=== PATIENT | female | born 1940 | race Hispanic/Latino ===

== ENCOUNTER → 2018-04-21 | Outpatient (CLI) | payer MEDICARE ==
[~2018-04-21] MED LIST: TRAM50TA4 PO
== END | disposition home or self-care (01) ==
LOC: RAH 08:43
PROVIDERS: ATTEND Family Medicine
DX: J43.9 Emphysema, unspecified (principal); R91.8 Other nonspecific abnormal finding of lung field; R91.1 Solitary pulmonary nodule; M47.894 Other spondylosis, thoracic region; K44.9 Diaphragmatic hernia without obstruction or gangrene
CPT/HCPCS: 71250

== ENCOUNTER → 2018-04-25 | Outpatient (CLI) | payer MEDICARE ==
[~2018-04-25] MED LIST changes: +REGADENOSON 0.4 MG/5 ML PF SYG IVP SCH
== END | disposition home or self-care (01) ==
LOC: SHCH 08:53
PROVIDERS: ATTEND Internal Medicine Cardiovascular Disease
DX: R07.9 Chest pain, unspecified (principal); R06.09 Other forms of dyspnea
CPT/HCPCS: 78452; 93017; 96374; A9500 ×2; J2785

== ENCOUNTER → 2018-05-01 | Outpatient (CLI) | payer MEDICARE ==
[~2018-05-01] MED LIST changes: -REGADENOSON 0.4 MG/5 ML PF SYG IVP SCH
== END | disposition home or self-care (01) ==
LOC: SHCH 09:30
PROVIDERS: ATTEND Internal Medicine Cardiovascular Disease
DX: I51.7 Cardiomegaly (principal); I20.9 Angina pectoris, unspecified; Z95.0 Presence of cardiac pacemaker
CPT/HCPCS: 93306

== ENCOUNTER 2018-12-22 10:44 | Emergency (ER) | payer MEDICARE ==
[2018-12-22] MEDS ORDERED: KETOROLAC TROMETHAMINE 30MG/ML ONE (13:50)
== END 2018-12-22 15:32 | disposition home or self-care (01) ==
LOC: EDH 10:44
DX: S13.8XXA Sprain of joints and ligaments of other parts of neck, initial encounter (principal); S33.5XXA Sprain of ligaments of lumbar spine, initial encounter; I48.91 Unspecified atrial fibrillation; Z88.5 Allergy status to narcotic agent; Z88.6 Allergy status to analgesic agent; Z91.041 Radiographic dye allergy status; V89.2XXA Person injured in unspecified motor-vehicle accident, traffic, initial encounter; Y93.89 Activity, other specified; Y92.89 Other specified places as the place of occurrence of the external cause; Y99.8 Other external cause status
CPT/HCPCS: 72125; 72128; 72131; 96372; 99284; J1885

== ENCOUNTER → 2019-03-05 | Outpatient (CLI) | payer MEDICARE | END | disposition home or self-care (01) | LOC: RAH 08:45 | PROVIDERS: ATTEND Family Medicine | DX: R10.9 Unspecified abdominal pain (principal); Z90.49 Acquired absence of other specified parts of digestive tract | CPT/HCPCS: 76700 ==

== ENCOUNTER 2019-04-20 21:38 | Emergency (ER) | payer MEDICARE ==
[2019-04-20] MEDS ORDERED: KETOROLAC TROMETHAMINE 15MG/ML ONE (22:49)
[2019-04-20] MEDS ORDERED: LIDOCAINE 5% TOPICAL PATCH TP ONE (22:49)
[2019-04-20 23:04] LABS: BASOPHILS % (AUTO) 0.4 % (0.0-5.0); EOSINOPHILS % (AUTO) 2.5 % (0.0-8.0); HEMATOCRIT 37.7 % (36-48); LYMPHOCYTES % (AUTO) 15.7 % (21.0-51.0); MEAN CORPUSCULAR HEMOGLOBIN 31.3 pg (27.0-33.0); MEAN CORPUSCULAR HGB CONC 34.5 g/dL (32.0-36.0); MEAN CORPUSCULAR VOLUME 90.6 fL (79-99); MONOCYTES % (AUTO) 8.6 % (3.0-13.0); NEUTROPHILS % (AUTO) 72.8 % (40.0-77.0); PLATELET COUNT (AUTO) 156 K/uL (130-400); RED BLOOD CELL COUNT(AUTO) 4.16 MIL/uL (4.00-5.50); RED CELL DISTRIBUTION WIDTH 13.2 % (11.0-15.5); WHITE BLOOD COUNT (AUTO) 8.1 K/uL (4.8-10.8)
[2019-04-20 23:11] LABS: CREATININE 0.6 mg/dL (0.5-1.5); POTASSIUM 3.5 mmol/L (3.5-5.1)
[2019-04-21 00:11] LABS: ERYTHROCYTE SEDIMENTATION RATE 12 MM/HR (0-30)
== END 2019-04-21 03:14 | disposition home or self-care (01) ==
LOC: EDH 21:38
DX: S16.1XXA Strain of muscle, fascia and tendon at neck level, initial encounter (principal); G89.29 Other chronic pain; M54.2 Cervicalgia; I48.91 Unspecified atrial fibrillation; Z88.5 Allergy status to narcotic agent; Z88.6 Allergy status to analgesic agent; Z91.041 Radiographic dye allergy status; X58.XXXA Exposure to other specified factors, initial encounter; Y93.89 Activity, other specified; Y92.89 Other specified places as the place of occurrence of the external cause; Y99.8 Other external cause status
CPT/HCPCS: 36415; 72125; 80048; 85025; 85651; 86140; 96374; 99285; J1885

== ENCOUNTER → 2019-06-06 | Outpatient (CLI) | payer MEDICARE | END | disposition home or self-care (01) | LOC: RAH 10:40 | PROVIDERS: ATTEND Family Medicine | DX: M25.552 Pain in left hip (principal) | CPT/HCPCS: 73501 ==

== ENCOUNTER 2019-12-20 09:26 | Emergency (ER) | payer MEDICARE ==
[2019-12-20 09:42] LABS: BASOPHILS % (AUTO) 0.7 % (0.0-5.0); EOSINOPHILS % (AUTO) 4.9 % (0.0-8.0); HEMATOCRIT 39.6 % (36-48); LYMPHOCYTES % (AUTO) 25.5 % (21.0-51.0); MEAN CORPUSCULAR HEMOGLOBIN 29.5 pg (27.0-33.0); MEAN CORPUSCULAR HGB CONC 32.8 g/dL (32.0-36.0); MONOCYTES % (AUTO) 9.1 % (3.0-13.0); NEUTROPHILS % (AUTO) 59.5 % (40.0-77.0); PLATELET COUNT (AUTO) 152 K/uL (130-400); WHITE BLOOD COUNT (AUTO) 6.2 K/uL (4.8-10.8)
[2019-12-20] MEDS ORDERED: ASPIRIN 325 MG TABLET ONE (09:43)
[2019-12-20 10:12] LABS: INR 0.97 (0.85-1.15); PARTIAL THROMBOPLASTIN TIME 27.3 SEC (26.3-35.5); PROTHROMBIN TIME 10.2 SEC (9.6-11.6)
[2019-12-20 10:19] LABS: ALBUMIN 3.2 g/dL (3.5-5.0); BILIRUBIN,TOTAL 0.4 mg/dL (0.2-1.0); POTASSIUM 3.7 mmol/L (3.5-5.1); TOTAL PROTEIN, SERUM 6.2 g/dL (6.0-8.3)
[2019-12-20 10:42] LABS: CREATININE 0.6 mg/dL (0.5-1.5)
[2019-12-20] MEDS ORDERED: DIAZEPAM 5 MG TABLET ONE (13:15)
[2019-12-20] MEDS ORDERED: KETOROLAC TROMETHAMINE 15MG/ML ONE (13:15)
[2019-12-20] MEDS ORDERED: SODIUM CHLORIDE 0.9% 1000ML 1,000 ML IV ONE (13:16)
== END 2019-12-20 15:16 | disposition home or self-care (01) ==
LOC: EDH 09:26
DX: R07.89 Other chest pain (principal); Z88.6 Allergy status to analgesic agent; Z88.5 Allergy status to narcotic agent; Z91.041 Radiographic dye allergy status; I48.91 Unspecified atrial fibrillation
CPT/HCPCS: 36415; 71045; 80053; 82550; 83880; 84484 ×2; 85025; 85610; 85730; 93005 ×2; 96374; 99285; J1885; J7030

== ENCOUNTER 2020-02-04 09:50 | Emergency (ER) | payer MEDICARE ==
[2020-02-04 10:20] LABS: BASOPHILS % (AUTO) 0.3 % (0.0-5.0); EOSINOPHILS % (AUTO) 4.3 % (0.0-8.0); HEMATOCRIT 38.6 % (36-48); LYMPHOCYTES % (AUTO) 17.9 % (21.0-51.0); MEAN CORPUSCULAR HEMOGLOBIN 30.2 pg (27.0-33.0); MEAN CORPUSCULAR HGB CONC 33.7 g/dL (32.0-36.0); MEAN CORPUSCULAR VOLUME 89.8 fL (79-99); MONOCYTES % (AUTO) 8.7 % (3.0-13.0); NEUTROPHILS % (AUTO) 68.3 % (40.0-77.0); PLATELET COUNT (AUTO) 171 K/uL (130-400); RED CELL DISTRIBUTION WIDTH 12.6 % (11.0-15.5); WHITE BLOOD COUNT (AUTO) 6.3 K/uL (4.8-10.8)
[2020-02-04 10:29] LABS: CREATININE 0.8 mg/dL (0.5-1.5); POTASSIUM 3.7 mmol/L (3.5-5.1)
[2020-02-04 10:34] LABS: ALBUMIN 3.5 g/dL (3.5-5.0); BILIRUBIN,TOTAL 0.5 mg/dL (0.2-1.0); TOTAL PROTEIN, SERUM 7.1 g/dL (6.0-8.3)
[2020-02-04 10:39] LABS: INR 0.98 (0.85-1.15); PARTIAL THROMBOPLASTIN TIME 29.8 SEC (26.3-35.5); PROTHROMBIN TIME 10.6 SEC (9.6-11.6)
[2020-02-04 10:55] LABS: B-TYPE NATRIURETIC PEPTIDE 118 pg/mL (0-100)
== END 2020-02-04 13:08 | disposition home or self-care (01) ==
LOC: EDH 09:50
DX: S09.90XA Unspecified injury of head, initial encounter (principal); R42 Dizziness and giddiness; I48.91 Unspecified atrial fibrillation; Z90.49 Acquired absence of other specified parts of digestive tract; Z98.890 Other specified postprocedural states; Z91.041 Radiographic dye allergy status; Z88.5 Allergy status to narcotic agent; Z88.6 Allergy status to analgesic agent; X58.XXXA Exposure to other specified factors, initial encounter; Y93.89 Activity, other specified; Y92.098 Other place in other non-institutional residence as the place of occurrence of the external cause; Y99.8 Other external cause status
CPT/HCPCS: 36415; 70450; 71045; 72125; 80053; 82550; 83880; 84484; 85025; 85610; 85730; 93005

== ENCOUNTER → 2020-02-06 | Outpatient (CLI) | payer MEDICARE | END | disposition home or self-care (01) | LOC: SHCH 09:45 | PROVIDERS: ATTEND Internal Medicine Cardiovascular Disease | DX: I34.0 Nonrheumatic mitral (valve) insufficiency (principal); I48.0 Paroxysmal atrial fibrillation; I51.7 Cardiomegaly; R06.09 Other forms of dyspnea | CPT/HCPCS: 93306 ==

== ENCOUNTER 2022-01-18 06:05 | Day surgery (SDC) | payer MEDICARE ==
[2022-01-14 12:37] LABS: BASOPHILS % (AUTO) 0.4 % (0.0-5.0); EOSINOPHILS % (AUTO) 1.9 % (0.0-8.0); HEMATOCRIT 43.6 % (36-48); LYMPHOCYTES % (AUTO) 25.8 % (21.0-51.0); MEAN CORPUSCULAR HEMOGLOBIN 30.8 pg (27.0-33.0); MEAN CORPUSCULAR VOLUME 93.4 fL (79-99); NEUTROPHILS % (AUTO) 63.6 % (40.0-77.0); PLATELET COUNT (AUTO) 201 K/uL (130-400); RED BLOOD CELL COUNT(AUTO) 4.67 MIL/uL (4.00-5.50); RED CELL DISTRIBUTION WIDTH 12.5 % (11.0-15.5); WHITE BLOOD COUNT (AUTO) 8.9 K/uL (4.8-10.8)
[2022-01-14 12:46] LABS: CREATININE 0.6 mg/dL (0.5-1.5); POTASSIUM 3.6 mmol/L (3.5-5.1)
[2022-01-14 12:49] LABS: INR 1.07 (0.85-1.15); PROTHROMBIN TIME 11.6 SEC (9.6-11.6)
[2022-01-14 12:51] LABS: PARTIAL THROMBOPLASTIN TIME 31.2 SEC (26.3-35.5)
[2022-01-15 08:49] VITALS: BP 176/84
[~2022-01-18] VITALS: Ht 160 cm; Wt 65.6 kg
[2022-01-18] VITALS (8 sets, daily range): BP systolic 100–147; BP diastolic 67–77
[~2022-01-18 06:05] MED LIST changes: +0.9% NACL 500ML IV.SOLN 500 ML IV SCH; +ACET-2247 PO; +CLINDAMYCIN IVPB 900MG/50ML 50 ML IV SCH; +CLON0.1T PO
[2022-01-18] MEDS ORDERED: 0.9%NACL 1000ML 1,000 ML IV ONE (06:16)
[2022-01-18] MEDS ORDERED: MEPERIDINE-PF 25 MG/ML SYG ONE ×2 (07:33→08:03)
[2022-01-18] MEDS ORDERED: CEFAZOLIN SODIUM 1 GM VIAL ONE (07:33)
[2022-01-18] MEDS ORDERED: BUPIVACAINE/PF 0.25% 30ML VIAL IJ ONE (07:33)
[2022-01-18] MEDS ORDERED: LIDOCAINE HCL 1% MDV 50ML VIAL ONE (07:33)
[2022-01-18] MEDS ORDERED: MIDAZOLAM HCL 1 MG/ML 2ML VIAL ONE ×2 (07:33→08:03)
[2022-01-18] MEDS ORDERED: CLINDAMYCIN IVPB 600MG/50ML 50 ML IV ONE (07:39)
[2022-01-18] MEDS ORDERED: TRAMADOL HCL 50 MG TABLET PO PRN (09:00)
== END 2022-01-18 12:05 | disposition home or self-care (01) ==
LOC: DAH 06:05
PROVIDERS: ATTEND Internal Medicine Cardiovascular Disease
DX: Z45.010 Encounter for checking and testing of cardiac pacemaker pulse generator [battery] (principal); I48.21 Permanent atrial fibrillation; I49.5 Sick sinus syndrome; Z88.6 Allergy status to analgesic agent; Z88.8 Allergy status to other drugs, medicaments and biological substances; Z88.3 Allergy status to other anti-infective agents; Z98.890 Other specified postprocedural states; Z88.1 Allergy status to other antibiotic agents; Z79.01 Long term (current) use of anticoagulants; Z90.49 Acquired absence of other specified parts of digestive tract; Z90.710 Acquired absence of both cervix and uterus; Z98.891 History of uterine scar from previous surgery; Z82.49 Family history of ischemic heart disease and other diseases of the circulatory system
CPT/HCPCS: 33228; 36415; 80048; 85025; 85610; 85730; 93005; A4215; A4216; A4221; A4222; A4223 ×3; A4606; A4663; C1785; J2175 ×2; J2250 ×2; J3490 ×4; J7030; 99156; 99157; J0690

== ENCOUNTER 2022-03-24 12:34 | Emergency (ER) | payer MEDICARE ==
[~2022-03-24 12:34] MED LIST changes: -0.9% NACL 500ML IV.SOLN 500 ML IV SCH; -CLINDAMYCIN IVPB 900MG/50ML 50 ML IV SCH
[2022-03-24 12:50] LABS: BASOPHILS % (AUTO) 0.6 % (0.0-5.0); EOSINOPHILS % (AUTO) 3.4 % (0.0-8.0); HEMATOCRIT 41.2 % (36-48); MEAN CORPUSCULAR HEMOGLOBIN 31.1 pg (27.0-33.0); MEAN CORPUSCULAR HGB CONC 32.8 g/dL (32.0-36.0); MEAN CORPUSCULAR VOLUME 94.9 fL (79-99); MONOCYTES % (AUTO) 9.5 % (3.0-13.0); NEUTROPHILS % (AUTO) 59.4 % (40.0-77.0); PLATELET COUNT (AUTO) 167 K/uL (130-400); RED BLOOD CELL COUNT(AUTO) 4.34 MIL/uL (4.00-5.50); RED CELL DISTRIBUTION WIDTH 12.2 % (11.0-15.5); WHITE BLOOD COUNT (AUTO) 6.7 K/uL (4.8-10.8)
[2022-03-24 12:58] LABS: CREATININE 0.7 mg/dL (0.5-1.5)
[2022-03-24] MEDS ORDERED: MAG/ALUM/SIMETH 30 ML UDCUP PO ONE (13:00)
[2022-03-24] MEDS ORDERED: FAMOTIDINE 20MG VIAL IV ONE (13:00)
[2022-03-24] MEDS ORDERED: DICYCLOMINE HCL 10 MG/5 ML ML PO ONE (13:00)
[2022-03-24] MEDS ORDERED: ONDANSETRON 4MG INJ IVP ONE (13:00)
[2022-03-24] MEDS ORDERED: LIDOCAINE HCL 2% VISCOUS 15 ML UDCUP PO ONE (13:00)
[2022-03-24 13:04] LABS: ALBUMIN 3.9 g/dL (3.5-5.0); BILIRUBIN,TOTAL 0.6 mg/dL (0.2-1.0); TOTAL PROTEIN, SERUM 7.3 g/dL (6.0-8.3)
[2022-03-24 14:18] LABS: APPEARANCE,URINE Clear (CLEAR); BILIRUBIN,URINE Negative (NEGATIVE); COLOR,URINE Yellow (YELLOW); GLUCOSE, URINE (UA) Negative (NEGATIVE); KETONES,URINE Negative (NEGATIVE); LEUKOCYTE ESTERASE ,URINE Negative (NEGATIVE); NITRATE,URINE Negative (NEGATIVE); OCCULT BLOOD,URINE Small (NEGATIVE); PH,URINE 5.5 (5.0-8.0); PROTEIN,URINE Negative (NEGATIVE); UROBILINOGEN,URINE 0.2 mg/dL (0.2-1.0)
[2022-03-24 14:29] LABS: BACTERIA,URINE Rare /HPF (None Seen); RBC,URINE 0-1 /HPF (0-1); SQUAMOUS EPITHELIAL CELL,UR Rare /HPF (0-2); WBC,URINE 0-1 /HPF (0-1)
[2022-03-24 14:35] VITALS: BP 126/74
[2022-03-24] MEDS ORDERED: ONDA4TAB10 PO (14:36)
== END 2022-03-24 14:58 | disposition home or self-care (01) ==
LOC: EDH 12:34
DX: K57.30 Diverticulosis of large intestine without perforation or abscess without bleeding (principal); R13.10 Dysphagia, unspecified; I10 Essential (primary) hypertension; I48.91 Unspecified atrial fibrillation; Z88.6 Allergy status to analgesic agent; Z88.2 Allergy status to sulfonamides; Z88.1 Allergy status to other antibiotic agents; Z88.8 Allergy status to other drugs, medicaments and biological substances; Z79.899 Other long term (current) drug therapy; Z90.89 Acquired absence of other organs; Z90.49 Acquired absence of other specified parts of digestive tract; Z98.890 Other specified postprocedural states
CPT/HCPCS: 36415; 71045; 74176; 80053; 81001; 83690; 84484; 85025; 96374; 96375; 99285; J2405; J3490

== ENCOUNTER 2023-06-26 02:38 | Observation (INO) | payer MEDICARE ==
[~2023-06-26] VITALS: Ht 149.9 cm; Wt 68.3 kg
[~2023-06-26 02:38] MED LIST changes: +ONDA4TAB10 PO
[2023-06-26 03:11] LABS: CREATININE 0.8 mg/dL (0.5-1.5); POTASSIUM 3.4 mmol/L (3.5-5.1)
[2023-06-26 03:15] LABS: ALBUMIN 3.5 g/dL (3.5-5.0); BASOPHILS # (AUTO) 0.04 K/uL (0.00-0.20); BASOPHILS % (AUTO) 0.5 % (0.0-5.0); BILIRUBIN,TOTAL 0.4 mg/dL (0.2-1.0); EOSINOPHILS # (AUTO) 0.16 K/uL (0.00-0.70); HEMATOCRIT 41.6 % (36-48); IMMATURE GRANULOCYTE ABSOLUTE 0.05 K/uL (0-1); LYMPHOCYTES # (AUTO) 1.9 K/uL (1.0-4.8); LYMPHOCYTES % (AUTO) 23.7 % (21.0-51.0); MEAN CORPUSCULAR HEMOGLOBIN 31.5 pg (27.0-33.0); MEAN CORPUSCULAR HGB CONC 33.9 g/dL (32.0-36.0); MEAN CORPUSCULAR VOLUME 92.9 fL (79-99); MONOCYTES # (AUTO) 0.7 K/uL (0.1-1.0); MONOCYTES % (AUTO) 8.6 % (3.0-13.0); NEUTROPHILS # (AUTO) 5.2 K/uL (1.8-7.7); NEUTROPHILS % (AUTO) 64.6 % (40.0-77.0); PLATELET COUNT (AUTO) 200 K/uL (130-400); RED BLOOD CELL COUNT(AUTO) 4.48 MIL/uL (4.00-5.50); RED CELL DISTRIBUTION WIDTH 13.2 % (11.0-15.5); TOTAL PROTEIN, SERUM 7.4 g/dL (6.0-8.3); WHITE BLOOD COUNT (AUTO) 8.1 K/uL (4.8-10.8)
[2023-06-26 03:21] LABS: INR 1.06 (0.85-1.15); PROTHROMBIN TIME 12.2 SEC (9.6-11.6)
[2023-06-26 03:23] LABS: PARTIAL THROMBOPLASTIN TIME 37.2 SEC (26.3-35.5)
[2023-06-26 03:25] LABS: B-TYPE NATRIURETIC PEPTIDE 125 pg/mL (0-100)
[2023-06-26] MEDS ORDERED: NITROGLYCERIN 0.4 MG SL TAB SL ONE (03:26)
[2023-06-26] MEDS: NITROGLYCERIN 0.4 MG SL TAB SL PRN ×2 (03:31→03:46)
[2023-06-26 04:41] LABS: ADD UA MICROSCOPIC YES; APPEARANCE,URINE CLEAR (CLEAR); BILIRUBIN,URINE NEGATIVE (NEGATIVE); COLOR,URINE LIGHT-YELLOW (YELLOW); GLUCOSE, URINE (UA) NEGATIVE (NEGATIVE); KETONES,URINE 10 mg/dL (NEGATIVE); LEUKOCYTE ESTERASE ,URINE NEGATIVE Leu/uL (NEGATIVE); NITRATE,URINE NEGATIVE (NEGATIVE); OCCULT BLOOD,URINE MODERATE (NEGATIVE); PH,URINE 5.5 (5.0-8.0); PROTEIN,URINE NEGATIVE (NEGATIVE); UROBILINOGEN,URINE 0.2 mg/dL (0.2-1.0)
[2023-06-26 04:52] LABS: MUCUS,URINE RARE LPF (None Seen); OTHER CASTS, URINE 4 /LPF (None Seen); SQUAMOUS EPITHELIAL CELL,UR RARE /HPF (0-2)
[2023-06-26] MEDS ORDERED: ONDANSETRON 4MG INJ IV PRN (05:30)
[2023-06-26] MEDS ORDERED: NITROGLYCERIN 0.4 MG SL TAB SL PRN (05:30)
[2023-06-26] MEDS ORDERED: ACETAMINOPHEN 325 MG TAB PO PRN ×2 (05:30)
[2023-06-26] MEDS ORDERED: POTASSIUM CHLORIDE 20MEQ/100ML 100 ML IV PRN (06:30)
[2023-06-26] MEDS ORDERED: POTASSIUM CHLORIDE 10% ELIXIR 20 MEQ/15 ML UDCUP PO PRN (06:30)
[2023-06-26] MEDS ORDERED: KCL 20 MEQ ERTAB PO PRN (06:30)
[2023-06-26] MEDS ORDERED: MAGNESIUM 2GM PREMIX 50ML 50 ML IV PRN (06:30)
[2023-06-26 08:00] VITALS: BP 119/77; PULSE 80; RESP 21
[2023-06-26] MEDS: FAMOTIDINE 20MG TAB PO SCH ×2 (09:00→21:05)
[2023-06-26] MEDS: ASPIRIN 81 MG EC TAB PO SCH (09:00)
[2023-06-26 12:00] VITALS: BP_SYST 121; BP_SYST 124; BP_DIAS 71; BP_DIAS 80; PULSE 77; PULSE 84; RESP 18; RESP 20
[2023-06-26 16:00] VITALS: BP 133/71; PULSE 67; RESP 20
[2023-06-26] MEDS ORDERED: TRAMADOL HCL 50 MG TABLET PO SCH (16:30)
[2023-06-26 16:37] LABS: AMPHET/METH SCREEN,URINE NEGATIVE (NEGATIVE); BARBITURATE SCREEN, URINE NEGATIVE (NEGATIVE); BENZODIAZEPINES SCREEN,URINE NEGATIVE (NEGATIVE); CANNABINOID SCREEN,URINE NEGATIVE (NEGATIVE); COCAINE SCREEN,URINE NEGATIVE (NEGATIVE); OPIATE SCREEN,URINE NEGATIVE (NEGATIVE); PHENCYCLIDINE SCREEN,URINE NEGATIVE (NEGATIVE)
[2023-06-26] MEDS ORDERED: TRAMADOL HCL 50 MG TABLET PO PRN (17:00)
[2023-06-26 20:00] VITALS: BP 124/69; PULSE 77; RESP 20; O2SAT 96
[2023-06-26 23:00] VITALS: BP 115/68; PULSE 70; RESP 19
[2023-06-27 04:19] VITALS: BP 124/62; PULSE 83; RESP 20
[2023-06-27 04:25] LABS: HEMATOCRIT 35.2 % (36-48); MEAN CORPUSCULAR HEMOGLOBIN 31.6 pg (27.0-33.0); MEAN CORPUSCULAR HGB CONC 33.5 g/dL (32.0-36.0); MEAN CORPUSCULAR VOLUME 94.4 fL (79-99); RED BLOOD CELL COUNT(AUTO) 3.73 MIL/uL (4.00-5.50); RED CELL DISTRIBUTION WIDTH 13.2 % (11.0-15.5); WHITE BLOOD COUNT (AUTO) 4.2 K/uL (4.8-10.8)
[2023-06-27 04:54] LABS: ALBUMIN 2.6 g/dL (3.5-5.0); BILIRUBIN,TOTAL 0.3 mg/dL (0.2-1.0); CREATININE 0.6 mg/dL (0.5-1.5); MAGNESIUM 1.8 mg/dL (1.80-2.40); POTASSIUM 3.2 mmol/L (3.5-5.1); THYROID STIMULATING HORMONE 0.35 uIU/mL (0.36-3.74); TOTAL PROTEIN, SERUM 5.7 g/dL (6.0-8.3)
[2023-06-27 08:00] VITALS: BP 132/65; PULSE 107; RESP 16
[2023-06-27] MEDS: FAMOTIDINE 20MG TAB PO SCH (08:45)
[2023-06-27] MEDS: ASPIRIN 81 MG EC TAB PO SCH (08:45)
== END 2023-06-27 12:30 | disposition home or self-care (01) ==
LOC: EDH 02:38 → INTOOBSV 05:25 → EDHIP 05:25 → 4DH 08:00
PROVIDERS: ADMIT Hospitalist; ATTEND Hospitalist
DX: I25.110 Atherosclerotic heart disease of native coronary artery with unstable angina pectoris (principal); I48.21 Permanent atrial fibrillation; E87.6 Hypokalemia; I10 Essential (primary) hypertension; R68.84 Jaw pain; R10.9 Unspecified abdominal pain; I08.1 Rheumatic disorders of both mitral and tricuspid valves; I45.9 Conduction disorder, unspecified; Z88.5 Allergy status to narcotic agent; Z88.1 Allergy status to other antibiotic agents; Z88.6 Allergy status to analgesic agent; Z88.8 Allergy status to other drugs, medicaments and biological substances; Z79.01 Long term (current) use of anticoagulants; Z79.82 Long term (current) use of aspirin; Z90.89 Acquired absence of other organs; Z95.810 Presence of automatic (implantable) cardiac defibrillator; Z86.73 Personal history of transient ischemic attack (TIA), and cerebral infarction without residual deficits; Z95.5 Presence of coronary angioplasty implant and graft; Z90.49 Acquired absence of other specified parts of digestive tract; Z79.899 Other long term (current) drug therapy; Z98.890 Other specified postprocedural states; Z51.5 Encounter for palliative care; W19.XXXA Unspecified fall, initial encounter; Y93.89 Activity, other specified; Y92.89 Other specified places as the place of occurrence of the external cause; Y99.8 Other external cause status
CPT/HCPCS: 99285; 93306; 70450; 92610; 71045; 81001; 82550; 83721; 84484 ×3; 80053 ×2; 83880; 80305; 85025; 85610; 85730; 87040 ×2; 87088; 82948; 83605; 36415 ×2; 70100; 74176; 93005; 96365; 96366; 80061; 84443; 83735; 85027; J3475; G0378

== ENCOUNTER 2024-02-03 07:14 | Observation (INO) | payer OTHER ==
[2024-02-01 12:09] LABS: BASOPHILS # (AUTO) 0.05 K/uL (0.00-0.20); BASOPHILS % (AUTO) 0.8 % (0.0-5.0); EOSINOPHILS % (AUTO) 3.3 % (0.0-8.0); HEMATOCRIT 39.7 % (36-48); IMMATURE GRANULOCYTE ABSOLUTE 0.02 K/uL (0-1); LYMPHOCYTES # (AUTO) 1.8 K/uL (1.0-4.8); LYMPHOCYTES % (AUTO) 29.6 % (21.0-51.0); MEAN CORPUSCULAR HEMOGLOBIN 30.8 pg (27.0-33.0); MEAN CORPUSCULAR HGB CONC 32.7 g/dL (32.0-36.0); MEAN CORPUSCULAR VOLUME 94.1 fL (79-99); MONOCYTES # (AUTO) 0.6 K/uL (0.1-1.0); MONOCYTES % (AUTO) 9.8 % (3.0-13.0); NEUTROPHILS # (AUTO) 3.5 K/uL (1.8-7.7); NEUTROPHILS % (AUTO) 56.2 % (40.0-77.0); PLATELET COUNT (AUTO) 211 K/uL (130-400); RED BLOOD CELL COUNT(AUTO) 4.22 MIL/uL (4.00-5.50); RED CELL DISTRIBUTION WIDTH 12.8 % (11.0-15.5); WHITE BLOOD COUNT (AUTO) 6.2 K/uL (4.8-10.8)
[2024-02-01 12:22] LABS: CREATININE 0.6 mg/dL (0.5-1.0); POTASSIUM 3.9 mmol/L (3.5-5.1)
[2024-02-01 12:24] LABS: INR <= 0.93 (0.85-1.15)
[2024-02-01 12:25] VITALS: BP 137/82; PULSE 93; RESP 18
[2024-02-01 12:25] LABS: PARTIAL THROMBOPLASTIN TIME 32.7 SEC (26.3-35.5)
[2024-02-01 12:26] LABS: APPEARANCE,URINE CLEAR (CLEAR); BILIRUBIN,URINE NEGATIVE (NEGATIVE); COLOR,URINE COLORLESS (YELLOW); GLUCOSE, URINE (UA) NEGATIVE (NEGATIVE); KETONES,URINE NEGATIVE (NEGATIVE); LEUKOCYTE ESTERASE ,URINE NEGATIVE Leu/uL (NEGATIVE); NITRATE,URINE NEGATIVE (NEGATIVE); OCCULT BLOOD,URINE SMALL (NEGATIVE); PROTEIN,URINE NEGATIVE (NEGATIVE); UROBILINOGEN,URINE 0.2 mg/dL (0.2-1.0)
[2024-02-01 12:35] LABS: ADD UA MICROSCOPIC YES
[2024-02-01 13:03] LABS: B-TYPE NATRIURETIC PEPTIDE 136 pg/mL (0-100)
[2024-02-01 13:26] LABS: WBC,URINE 0-1 /HPF (0-1)
[~2024-02-03] VITALS: Ht 152.4 cm; Wt 63.9 kg
[2024-02-03] VITALS (14 sets, daily range): BP systolic 119–158; BP diastolic 68–93; PULSE 83–102; RESP 15–21; O2SAT 94
[~2024-02-03 07:14] MED LIST changes: +ASPI-891 PO; -CLON0.1T PO; +ERGOCALCIFEROL PO; +ISOS30TA92 PO; +NITR0.4T50 SL; -ONDA4TAB10 PO; +ONDA4TAB10 SL; +PANT40TA54 PO; +PRED20TA3 PO
[2024-02-03] MEDS ORDERED: LIDOCAINE HCL 400MG/20ML VIAL ONE (08:40)
[2024-02-03] MEDS ORDERED: BIVALIRUDIN 250 MG/VIAL IV ONE (08:40)
[2024-02-03] MEDS ORDERED: NITROGLYCERIN 50MG VIAL ONE (08:41)
[2024-02-03] MEDS ORDERED: FENTANYL CITRATE PF 50 MCG/1 ML 2ML VIAL ONE (08:41)
[2024-02-03] MEDS ORDERED: HEPARIN 10,000 UNIT/10ML (1,000 UNIT/ML) VIAL ONE (08:41)
[2024-02-03] MEDS ORDERED: IOHEXOL 350 MG/ML 100ML INFUS..BTL IV ONE (08:41)
[2024-02-03] MEDS ORDERED: MIDAZOLAM HCL 1 MG/ML 2ML VIAL ONE (08:41)
[2024-02-03] MEDS ORDERED: NICARDIPINE 25MG INJ IV ONE (08:57)
[2024-02-03] MEDS ORDERED: SOLU-MEDROL 125MG VIAL ONE (09:01)
[2024-02-03] MEDS: 0.9%NACL 1000ML 1,000 ML IV ONE (09:27)
[2024-02-03] MEDS ORDERED: CLOPIDOGREL 300MG TAB ONE (10:07)
[2024-02-03] MEDS ORDERED: DEXTROSE 50%-WATER 50 ML DISP.SYRIN IV PRN (10:30)
[2024-02-03] MEDS ORDERED: NITROGLYCERIN 0.4 MG SL TAB SL PRN (10:30)
[2024-02-03] MEDS ORDERED: GLUCAGON 1MG KIT 1 MG ML IM PRN (10:30)
[2024-02-03] MEDS ORDERED: HYDRALAZINE 20MG/ML VIAL IV PRN ×2 (11:00→14:30)
[2024-02-03] MEDS: 0.9%NACL 1000ML 1,000 ML IV SCH (12:13)
[2024-02-03] MEDS: PANTOPRAZOLE 40 MG/VIAL IVP ONE (12:13)
[2024-02-03] MEDS: ATORVASTATIN 10 MG TABLET PO SCH (21:19)
[2024-02-04] VITALS: BP 124/70; PULSE 76; RESP 20
[2024-02-04] MEDS: ACETAMINOPHEN 500 MG TABLET PO ONE (03:46)
[2024-02-04 04:00] VITALS: BP 131/73; PULSE 78; RESP 20
[2024-02-04] MEDS ORDERED: ACETAMINOPHEN 325 MG TAB PO PRN (04:00)
[2024-02-04 07:00] VITALS: BP 112/61; PULSE 69; RESP 20
[2024-02-04 07:30] VITALS: O2SAT 94
[2024-02-04] MEDS: METOPROLOL SUCCINATE 25 MG TAB.SR.24H PO SCH (09:00)
[2024-02-04] MEDS: CLOPIDOGREL 75MG TAB PO SCH (09:04)
[2024-02-04] MEDS: ASPIRIN 81MG CHEW TAB PO SCH (09:04)
[2024-02-04] MEDS ORDERED: CLOP-31 PO (09:42)
[2024-02-04] MEDS ORDERED: ATOR10 PO (09:42)
[2024-02-04] MEDS ORDERED: METO25TA3 PO (09:42)
[2024-02-04] MEDS ORDERED: ASPI-1005 PO (09:42)
[2024-02-04 11:00] VITALS: BP 119/70; PULSE 76; RESP 20
== END 2024-02-04 12:45 | disposition home or self-care (01) ==
LOC: DAH 07:14 → DAHIP 07:15 → 2DH 17:55
PROVIDERS: ADMIT Internal Medicine; ATTEND Internal Medicine
DX: I25.110 Atherosclerotic heart disease of native coronary artery with unstable angina pectoris (principal); I11.0 Hypertensive heart disease with heart failure; I50.32 Chronic diastolic (congestive) heart failure; E78.5 Hyperlipidemia, unspecified; F11.90 Opioid use, unspecified, uncomplicated; I49.5 Sick sinus syndrome; I48.0 Paroxysmal atrial fibrillation; R07.89 Other chest pain; G89.29 Other chronic pain; Z79.82 Long term (current) use of aspirin; Z95.5 Presence of coronary angioplasty implant and graft; Z88.1 Allergy status to other antibiotic agents; Z88.2 Allergy status to sulfonamides; Z88.5 Allergy status to narcotic agent; Z88.8 Allergy status to other drugs, medicaments and biological substances; Z95.0 Presence of cardiac pacemaker
CPT/HCPCS: 80048; 83880; 85025; 85610; 85730; 81001; 36415; 71045; 93005; 93458; 96374; C1769 ×3; C1887 ×3; C1894 ×3; C1760; C1874; A4649; Q9965; G0378 ×26; J3010; J3490 ×3; J7030; J2930; J1644 ×2; J2250; C9113; J0583; Q9967; A4215; A4223 ×3; A4222; A4221; A4663; A4216; A4606; C9600; 99156; 99157

== ENCOUNTER → 2024-10-15 | Outpatient (CLI) | payer OTHER ==
[~2024-10-15] MED LIST changes: +ASPI-1005 PO; -ASPI-891 PO; +ATOR10 PO; +CLOP-31 PO; -ISOS30TA92 PO; +METO25TA3 PO; +ONDA-243 SL; -ONDA4TAB10 SL
--- NOTE | 2024-10-17 08:34 | HMCSR ---
APPROVED REPORT EXAM: Two-dimensional and M-mode echocardiogram with Doppler and color Doppler. INDICATION ICD: I20.9 Angina pectoris R06.02 Shortness of Breath 2D Dimensions RVDd4.0 cmLVEF(%)43.1 (>50%)LVED Vol(simp.)74.0 mL IVSd1.1 (0.7-1.1cm)FS(%)21 %LVES Vol(simp.)47.0 mL LVDd5.0 (3.8-5.6cm)Ao Root(2D)3.1 (2.0-3.7cm)LVEF(%, simp.)36 % PWd1.2 (0.7-1.1cm)LVOT diam1.9 (1.8-2.4cm)LA ESV INDEX (BP)106.46 mL/m2 LVDs3.9 (2.5-4.0cm)IVC diam2.0 cm Aortic Valve AoV Vmax1.2 m/Linette Peak GR5.6 mmHgLVOT Vmax0.8 m/s AoV VTI0.2 mAo Mean GR3.5 mmHgLVOT VTI0.14 m GEORGINA (VMAX)1.9 cm2Al P1/2T805 msAVA (VTI) 1.9 cm2 Mitral Valve MV E Vmax87.0 cm/sDECEL Zbpd671 msMR WAW989 cm2 MR Max PG107 mmHgP 1/2 T45 ms MVA (PHT)4.9 cm2 MR Mean PG67 mmHg TDI E/E' [id number] Pulmonary Valve PV Vmax0.8 m/sPV VTI0.17 mPV Mean GR2 mmHg PV Peak GR2.5 mmHgPI End Yoselin. Ankit 1.3 cm/s Tricuspid Valve TR Vmax2.8 m/sRAP (EST) 8 akMjESIC27.2 mmHg TR Peak GR32.2 mmHg Left Ventricle The left ventricle structure and function is normal. Mild global hypokinesis There is mild concentric left ventricular hypertrophy. LVEF is 45-50%. Indeterminate diastolic dysfunction secondary to under lying atrial dysrhythmia. Right Ventricle The right ventricle is normal size. Right ventricular systolic function is mildly reduced. Pacemaker lead noted Atria The left atrium is severely dilated. The right atrium is severely dilated. Aortic Valve Aortic valve is trileaflet. Aortic valve leaflets are sclerotic but open well. Trace to mild aortic r egurgitation. Calculated aortic valve area is 1.9 cm2 with maximum pressure gradient of 5.6 mmHg and mean pressure gradient of 3.5 mmHg. Mitral Valve The mitral valve is mildly thickened. Moderate eccentric mitral regurgitation There is no mitral valv e stenosis. Tricuspid Valve The tricuspid valve leaflets appear normal. There is severe tricuspid regurgitation. Right ventricula r systolic pressure is estimated at 40 mmHg. Pulmonic Valve The pulmonic valve leaflets are thin and pliable; valve motion is normal. There is mild valvular regu rgitation. Great Vessels The aortic root is normal in size. IVC is dilated and collapses >50% with inspiration. Pericardium No pericardial effusion. Conclusion LVEF is 45-50%. Mild global hypokinesis Indeterminate diastolic dysfunction secondary to underlying atrial dysrhythmia. Right ventricular systolic function is mildly reduced. The left atrium is severely dilated. Aortic valve is trileaflet. Aortic valve leaflets are sclerotic but open well. Trace to mild aortic regurgitation. There is severe tricuspid regurgitation. Right ventricular systolic pressure is estimated at 40 mmHg. Moderate eccentric mitral regurgitation
== END | disposition home or self-care (01) ==
LOC: SHCH 14:18
PROVIDERS: ATTEND Internal Medicine Cardiovascular Disease
DX: I08.8 Other rheumatic multiple valve diseases (principal); I20.9 Angina pectoris, unspecified; R06.02 Shortness of breath
CPT/HCPCS: 93306

== ENCOUNTER → 2024-10-22 | Outpatient (CLI) | payer OTHER ==
[2024-10-22 12:14] LABS: CREATININE 0.9 mg/dL (0.5-1.0); POTASSIUM 4.2 mmol/L (3.5-5.1)
== END | disposition home or self-care (01) ==
LOC: LAB 09:29
PROVIDERS: ATTEND Internal Medicine Cardiovascular Disease
DX: I50.21 Acute systolic (congestive) heart failure (principal)
CPT/HCPCS: 36415; 80048; 83880

== ENCOUNTER 2025-10-19 15:29 | Emergency (ER) | payer MEDICARE, OTHER ==
[~2025-10-19] VITALS: Ht 152.4 cm; Wt 54.9 kg
[~2025-10-19 15:29] MED LIST changes: -ACET-2247 PO; -ATOR10 PO; +ATOR10TA69 PO; -CLOP-31 PO; -ERGOCALCIFEROL PO; +FLUT15.845 NS; +ISOS-58 PO; +ISOS30TA11 PO; +METO-408 PO; -NITR0.4T50 SL; -ONDA-243 SL; -PANT40TA54 PO; -PRED20TA3 PO; +TRAM-543 PO; -TRAM50TA4 PO
--- NOTE | 2025-10-19 16:10 | NUR ---
REGARDING MEDICATION ALLERGIES: MEDICATIONS FOR SEDATION REVIEWED WITH PHARMACIST PRIOR TO ADMINISTRATION.
[2025-10-19] MEDS: MIDAZOLAM HCL 1 MG/ML 2ML VIAL IVP SCH (16:21)
--- NOTE | 2025-10-19 16:24 | ERN ---
General Chief Complaint: Mechanical Fall Stated Complaint: MECHANICAL FALL. LEFT KNEE PAIN. NON TRAUMA Time Seen by MD: 15:33 Source: patient History of Present Illness Initial Comments PATIENT IS A 84-YEAR-OLD FEMALE COMING IN TO BE EVALUATED AFTER SHE HAD A FALL EARLIER TODAY. PER FAMILY MEMBER PATIENT FELL BACKWARDS STRETCHING IN HER LEFT LEG IN HIS COMPLAINING OF LEFT LEG PAIN. Allergies: Coded Allergies: morphine (Unverified Allergy, Severe, RESPIRATORY DISTRESS, 05/19/12) Sulfa (Sulfonamide Antibiotics) (Unverified Allergy, Unknown, HIVES, 10/10/14) baclofen (Unverified Allergy, Unknown, HIVES, 05/19/12) LUMPS TO HEAD cephalexin (Unverified Allergy, Unknown, 01/18/22) ciprofloxacin (Unverified Allergy, Unknown, 01/18/22) codeine (Unverified Allergy, Unknown, RASH, 05/19/12) cyclobenzaprine (Unverified Allergy, Unknown, 01/18/22) digoxin (Unverified Allergy, Unknown, RASH, 05/19/12) dofetilide (Unverified Allergy, Unknown, 01/18/22) gabapentin (Unverified Allergy, Unknown, RASH, 05/19/12) hydrocodone bit (Unverified Allergy, Unknown, RESTLESSNESS, 05/19/12) UNABLE TO SLEEP iodine (Unverified Allergy, Unknown, RASH, 05/19/12) levofloxacin (Unverified Allergy, Unknown, RASH, 05/19/12) sotalol (Unverified Allergy, Unknown, 01/18/22) tetracycline (Unverified Allergy, Unknown, RASH, 05/19/12) vancomycin (Unverified Allergy, Unknown, RASH, 10/10/14) warfarin sodium (Unverified Allergy, Unknown, BLEEDING, 05/19/12) Home Meds Active Scripts Metoprolol Succinate (Toprol Xl) 25 Mg Tab.er.24h, 25 MG PO DAILY for 30 Days, #30 TAB 1 Refill Prov:JENNIE PANTOJA MD 02/04/24 Aspirin (ASPIRIN 81MG CHEW TAB) 81 Mg Tab.chew, 81 MG PO DAILY for 30 Days, #30 TAB.CHEW 1 Refill Prov:JENNIE PANTOJA MD 02/04/24 Reported Medications Tramadol HCl/Acetaminophen (Tramadol-Acetaminophn 37.5-325) 37.5 Mg-325 Mg Tablet, 1 TAB PO Q4HPRN PRN for pain for 2 Days, #12 TAB 0 Refills 01/12/25 Fluticasone Propionate (Fluticasone Propionate) 50 Mcg/Actuation Merritt.susp, 50 MCG NS DAILY 01/11/25 Metoprolol Succinate (Metoprolol Succinate) 25 Mg Tab.er.24h, 25 MG PO DAILY, TA B 01/11/25 Atorvastatin Calcium (Atorvastatin Calcium) 10 Mg Tablet, 10 MG PO DAILY, TAB 01/11/25 Isosorbide Mononitrate (Isosorbide Mononitrate) 20 Mg Tablet, 60 MG PO DAILY, TAB 01/11/25 Isosorbide Dinitrate (Isosorbide Dinitrate) 30 Mg Tablet, 30 MG PO DAILY, TAB 01/11/25 Past Medical History Past Medical History: Diabetes-Type II, High Cholesterol, Hypertension Past Surgical History: Appendectomy, Cholecystectomy, Pacer/AICD, Family History Family History: Negative Social History Social History: Negative ROS Dictation CONSTITUTIONAL: NO CHILLS, NO FEVER, NO WEAKNESS, NO DIAPHORESIS, NO MALAISE. HEAD/FACE: NO SIGNS OF TRAUMA. EENT: NO EYE PAIN, NO BLURRED VISION, NO TEARING, NO DOUBLE VISION, NO EAR PAIN, NO EAR DISCHARGE, NO NOSE PAIN, NO NASAL CONGESTION, NO THROAT PAIN, NO THROAT SWELLING, NO MOUTH PAIN. RESPIRATORY: NO COUGH, NO ORTHOPNEA, NO SOB, NO STRIDOR, NO WHEEZING. CARDIOVASCULAR: NO CHEST PAIN, NO EDEMA, NO PALPITATIONS, NO SYNCOPE. GASTROINTESTINAL/ABDOMINAL: NO ABDOMINAL PAIN, NO CONSTIPATION, NO DIARRHEA, NO NAUSEA, NO VOMITING. GENITOURINARY: NO ABNORMAL DISCHARGE, NO DYSURIA, NO FREQUENT URINATION, NO HEMATURIA. NO COMPLAINTS OF PAIN IN THE GENITALS. MUSCULOSKELETAL: NO BACK PAIN, NO GOUT, JOINT PAIN, JOINT SWELLING, NO MUSCLE PAIN, NO MUSCLE STIFFNESS, NO NECK PAIN. INTEGUMENTARY: NO CHANGE IN COLOR, NO CHANGE IN HAIR/NAILS, NO DRYNESS, NO LESION, NO LUMPS, NO RASH. NEUROLOGICAL/PSYCH: NO ANXIETY, NOT DEPRESSED, NO EMOTIONAL PROBLEM, NO HEADACHE, NO NUMBNESS, NO PRE-EXISTING DEFICIT, NO HISTORY OF SEIZURES, NO TREMORS, NO WEAKNESS. HEMATOLOGIC/LYMPHATIC: NOT ANEMIC, NO HISTORY OF BLOOD CLOTS, NO APPARENT BLEEDING, NO BRUISING, GLANDS NOT SWOLLEN. ALL SYSTEMS NEGATIVE, EXCEPT NOTED. Physical Exam Physical Exam Dictation VITAL SIGNS: REVIEWED. GENERAL APPEARANCE: ALERT, ORIENTED X3, NO ACUTE DISTRESS, OBESE. HEAD AND FACE: NON-TRAUMATIC. EYES: PERRL, PINK CONJUNCTIVAS, EYELID NO TRAUMA, ANTERIOR CHAMBER CLEAR. EARS: PINNAS INTACT AND NO SIGNS OF TRAUMA OR ERYTHEMA. EAR CANALS CLEAR AND NO DISCHARGE. TMS NO ERYTHEMA. NOSE: NO DISCHARGE, NO BLEEDING. OROPHARYNX: MOUTH NORMAL, TEETH NO CARIES, TONGUE PINK. PHARYNX CLEAR, NO ERYTHEMA. TONSILS NO EXUDATES, NO ABSCESSES NOTED. MUCOUS MEMBRANE MOIST. NECK: SUPPLE, NON-TENDER, NO THYROMEGALY, NO MASSES, NO JVD, NO BRUITS. BREAST: DEFERRED. CHEST: NO TENDERNESS, NO CREPITUS, NO PARADOXICAL MOVEMENT, NO RETRACTIONS. LUNGS: CLEAR, WELL-VENTILATED, SYMMETRIC, NO RALES, NO WHEEZING, NO RHONCHI, NO STRIDOR, GOOD BREATH SOUNDS BILATERALLY. HEART: REGULAR RATE, REGULAR RHYTHM, NO MURMUR, NO GALLOPS. VASCULAR: NO PERIPHERAL EDEMA. ABDOMEN: SOFT, POSITIVE BOWEL SOUNDS, NONDISTENDED, NO GUARDING, NONTENDER, NO REBOUND, NO MASSES NO HEPATOMEGALY, NO SPLENOMEGALY, NO BOWMAN'S SIGN, NO HERNIAS. RECTAL: DEFERRED. GENITAL: DEFERRED. NEUROLOGICAL: NORMAL SPEECH, GROSS MOTOR FUNCTION INTACT, GROSS SENSORY FUNCTION INTACT. MUSCULOSKELETAL: NECK NONTENDER, FULL RANGE OF MOTION, BACK NONTENDER, FULL RANGE OF MOTION. EXTREMITIES: NONTENDER, FULL RANGE OF MOTION. LEFT LEG PAIN ON PALPATION, KNEE SWELLING SKIN: COLOR PINK, DRY, NO TURGOR, NO RASH, NO LACERATIONS, NO ABRASIONS, NO CONTUSIONS. LYMPHATICS: DEFERRED. Results Laboratory and Microbiology Labs Reviewed?: Yes EKG/XRAY/US/CT/MRI X-RAY Comment LEFT LEG FEMUR- DISTAL FEMUR FRACTURE DISPLACED MDM MDM: DIFFERENTIAL DIAGNOSIS: DISTAL FEMUR FRACTURE DISPLACED, FEMUR FRACTURE, FALL, RATIONALE: TESTS CONSIDERED AND ORDERED SECONDARY TO SHARED DECISION MAKING INCLUDE: LABS, ECG AND RADIOLOGY PREVIOUS OUTSIDE RECORDS REVIEWED: OLD ER VISITS. RISK OF COMPLICATION AND/OR MORBIDITY OR MORTALITY OF PATIENT MANAGEMENT: NONE MEDICATIONS-PER MEDICATION RECONCILIATION NEED FOR HOSPITALIZATION: PATIENT DOES MEET CRITERIA FOR HOSPITALIZATION. NEED FOR EMERGENCY MAJOR/MINOR SURGERY: NO THERE ARE NO SOCIAL CONCERNS WITH THIS PATIENT. PRESCRIPTION DRUG MANAGEMENT PRESCRIPTIONS WILL INCLUDE SYMPTOMATIC CARE PATIENT'S PRIOR EXTERNAL MEDICAL RECORDS FROM OTHER ER VISITS WERE REVIEWED BY ME INDICATED. PRIOR TESTING AND RESULTS FROM PREVIOUS VISITS WERE REVIEWED. PRIOR TESTS WERE TAKEN INTO ACCOUNT WITH MEDICAL DECISION MAKING AND RESOURCE UTILIZATION, INDEPENDENT HISTORIAN/HISTORIANS WERE USED TO OBTAIN COMPLETE MEDICAL HISTORY. I INDEPENDENTLY INTERPRETED THE TEST THAT WERE PERFORMED, RESULTS WERE REVIEWED BY ME AND CONSIDERED FINDINGS ON RADIOLOGY IF ORDERED. MEDICAL MANAGEMENT AND EXAMINATION INTERPRETATION DISCUSSIONS WERE HAD BY ME WITH OTHER QUALIFIED HEALTHCARE PROFESSIONALS INDICATED FOR THE PATIENT'S CARE. PATIENT HAD A FALL EARLIER TODAY HAS A DISTAL FEMUR FRACTURE OF THE LEFT LEG TRACTION COUNTER TRACTION WAS APPLIED KNEE IMMOBILIZER IN PLACE DR. FORRESTER ORTHO ON-CALL OKAY TO ADMIT PATIENT UNDER THE CARE OF HOSPITALIST GROUP FOR ONGOING MANAGEMENT. PER DR. Forrester pt is to be transferred to [facility]. ED Course Orders Procedure Category Date Status Time Knee 3vws Lt RAD 10/19/25 Taken 15:34 Ketorolac PHA 10/19/25 In Process Tromethamine 30mg/Ml 16:00 Ketorolac PHA 10/19/25 Complete Tromethamine 30mg/Ml 16:03 Cbc With Differential LAB 10/19/25 Logged 16:23 Basic Metabolic Panel LAB 10/19/25 Logged 16:23 Pt And Ptt LAB 10/19/25 Logged 16:23 Ketamine 50mg/Ml PHA 10/19/25 Complete Syringe (Ketamine 16:26 Midazolam Hcl (Versed) PHA 10/19/25 Complete 16:26 Ketamine 50mg/Ml PHA 10/19/25 Complete Syringe (Ketamine 16:29 Knee/Patella 1-2vws Lt RAD 10/19/25 Taken 16:32 Current Medications Medications (Trade) Dose Ordered Sig/Shala Route PRN Reason Start Time Stop Time Status Last Admin Dose Admin Ketamine HCl (ketaMINE 50MG/ ML SYRINGE) 50 mg STK-MED ONCE .ROUTE 10/19/25 16:26 10/19/25 16:26 DC Ketamine HCl (ketaMINE 50MG/ ML SYRINGE) 50 mg STK-MED ONCE .ROUTE 10/19/25 16:29 10/19/25 16:30 DC Ketorolac Tromethamine (toRADol) 30 mg ONCE IVP 10/19/25 16:00 10/19/25 20:00 Ketorolac Tromethamine (toRADol) 30 mg STK-MED ONCE .ROUTE 10/19/25 16:03 10/19/25 16:03 DC 10/19/25 16:05 Midazolam HCl (Versed) 10 mg STK-MED ONCE IV 10/19/25 16:26 10/19/25 16:26 DC Vital Signs Date Time Temp Pulse Resp B/P (MAP) Pulse Ox O2 Delivery O2 Flow Rate FiO2 10/19/25 16:16 98.1 75 13 132/68 100 Room Air* 0 21 10/19/25 15:31 98.2 74 14 120/80 99 Room Air 0 Joint Reduction Joint Reduction : Joint Reduction Site: knee (L) Conscious Sedation: Yes Reduction Attempts: 1 Pre-Procedure NV Exam: Yes Post-Procedure NV Exam: Yes post joint reduction film: joint reduced DX & DISP Disposition: Transfer Departure Impression: Primary Impression: Closed fracture of left distal femur Condition: Stable Referrals: PENELOPE PERALES MD (PCP) CELINE CABRERA MD Oct 19, 2025 16:24
[2025-10-19 16:53] LABS: IMMATURE GRANULOCYTE ABSOLUTE 0.04 K/uL (0-1); NUCLEATED RED BLOOD CELLS 0.0 % (0.0-0.19); PLATELET COUNT (AUTO) 135 K/uL (130-400); RED BLOOD CELL COUNT(AUTO) 2.96 MIL/uL (4.00-5.50); RED CELL DISTRIBUTION WIDTH 13.5 % (11.0-15.5); WHITE BLOOD COUNT (AUTO) 6.4 K/uL (4.8-10.8)
--- NOTE | 2025-10-19 16:54 | HMCIMG ---
EXAM: CR right Knee, 3 View. CLINICAL HISTORY: FALL COMPARISON: None provided. FINDINGS: BONES: Acute oblique fracture distal femur with proximal/dorsal displacement. Dorsal angulation noted. JOINTS: The joint spaces show no significant degenerative disease. There is no joint effusion appreciated. SOFT TISSUES: The soft tissues are unremarkable. IMPRESSION: Acute oblique fracture distal femur with proximal/dorsal displacement. Dorsal angulation noted. /[place]
[2025-10-19 17:01] LABS: CREATININE 0.6 mg/dL (0.5-1.0); GLOMERULAR FILTR. RATE CALC 89.0 mL/min (>90); GLUCOSE,RANDOM 104.0 mg/dL (70-105); SODIUM SERUM 138.0 mmol/L (136-145); UREA NITROGEN, BLOOD 6.0 mg/dL (7-18)
[2025-10-19 17:03] LABS: INR 1.15 (0.85-1.15)
--- NOTE | 2025-10-19 17:05 | NUR ---
TRANSFER REQUEST FOR ORTHO SERVICE UNDER DOCTOR PORTIA . CON REGAN
[2025-10-19] MEDS: MIDAZOLAM HCL 5 MG/ML 2ML VIAL IV ONE (17:11)
--- NOTE | 2025-10-19 17:25 | NUR ---
[place] [facility] [place] IN[place]KE NURSE INFORMATION PROVIDED AND WILL CALL BACK. CON REGAN
--- NOTE | 2025-10-19 17:43 | HMCIMG ---
STUDY CR right knee, 2 view. HISTORY Post reduction of distal femur fracture. TECHNIQUE Multiview radiographic examination of the right knee. COMPARISON Left knee radiographs dated 10/19/2025 15:55 EST. FINDINGS Bones Comminuted distal femoral fracture involving the metaphysis with extension into the intercondylar articular surface, compatible with a distal intra-articular fracture. Alignment appears improved post reduction, though residual displacement and comminution are present. No additional acute fracture is identified. Joints Fracture lines extend across the intercondylar articular margins of the distal femur. Background arthrosis of the knee joint is present. No large joint effusion is clearly visualized on this limited study. Soft tissues Periarticular soft tissue swelling and edema surround the distal femur and knee. No radiopaque foreign body is seen. IMPRESSION * Comminuted intra-articular distal femoral fracture with fracture lines extending across the intercondylar articular surface, status post reduction with improved but not anatomic alignment. * Associated periarticular soft tissue edema and underlying knee arthrosis. /Beulah
[2025-10-19 19:15] VITALS: TEMP 97.6
[2025-10-19 21:21] VITALS: O2SAT 99
--- NOTE | 2025-10-19 22:23 | NUR ---
REPORT GIVEN TO LUNA HOBBS RN FROM [facility] ROOM [id number],
[2025-10-20 00:01] VITALS: BP 117/60; PULSE 68; RESP 14
== END 2025-10-20 01:02 | disposition short-term general hospital (02) ==
LOC: EDH 15:29
DX: S72.492A Other fracture of lower end of left femur, initial encounter for closed fracture (principal); I10 Essential (primary) hypertension; E11.9 Type 2 diabetes mellitus without complications; E78.00 Pure hypercholesterolemia, unspecified; Z79.82 Long term (current) use of aspirin; Z79.899 Other long term (current) drug therapy; Z88.1 Allergy status to other antibiotic agents; Z88.2 Allergy status to sulfonamides; Z88.5 Allergy status to narcotic agent; Z88.8 Allergy status to other drugs, medicaments and biological substances; Z90.49 Acquired absence of other specified parts of digestive tract; Z95.810 Presence of automatic (implantable) cardiac defibrillator; W18.39XA Other fall on same level, initial encounter; Y93.89 Activity, other specified; Y92.89 Other specified places as the place of occurrence of the external cause; Y99.8 Other external cause status
CPT/HCPCS: 27510; 99285; 80048; 85025; 85610; 85730; 36415; 73560; 73562; 99152; 96374; 96361; 96376; J1885; J3010 ×2; J3480; J2250; J3490